=== PATIENT | male | born 1960 | race Caucasian/White ===

== ENCOUNTER 2021-10-04 13:20 | Emergency (ER) | payer OTHER ==
[~2021-10-04] VITALS: Ht 175.3 cm; Wt 92.1 kg
[2021-10-04] MEDS ORDERED: FAMOTIDINE 20 MG TABLET PO ONE (14:30)
[2021-10-04] MEDS ORDERED: MAG HYDROX/AL HYDROX/SIMETH 30 ML, DICYCLOMINE HCL 20 MG, LIDOCAINE VISCOUS 2% 15ML (PO... PO ONE ×3 (14:30)
[2021-10-04] MEDS ORDERED: ONDANSETRON 4 MG ODT TAB PO ONE (14:45)
[2021-10-04 14:51] LABS: BILIRUBIN,URINE NEGATIVE (NEGATIVE); BLOOD, URINE NEGATIVE (NEGATIVE); CLARITY/URINE CLEAR (CLEAR); COLOR,URINE YELLOW (YELLOW); GLUCOSE,URINE 3+ (NEGATIVE); KETONES,URINE 2+ (NEGATIVE); LEUKOCYTE ESTERASE ,URINE NEGATIVE (NEGATIVE); NITRITE, URINE NEGATIVE (NEGATIVE); PH,URINE 5.5 (5.0-8.0); PROTEIN URINE NEGATIVE (NEGATIVE); UROBILINOGEN,URINE 0.2 (0.2-1.0)
[2021-10-04 14:53] LABS: BASOPHILS # (AUTO) 0.1 K/uL (0.0-0.2); EOSINOPHILS % (AUTO) 0.2 % (0.0-4.0); HEMATOCRIT 49.3 % (36-54); HEMOGLOBIN 16.5 g/dL (14.0-18.0); LYMPHOCYTES # (AUTO) 0.7 K/uL (1.0-5.5); LYMPHOCYTES % (AUTO) 6.2 % (20.5-51.5); MEAN CORPUSCULAR HEMOGLOBIN 30 pg (27-31); MEAN CORPUSCULAR HGB CONC 34 % (32-36); MEAN CORPUSCULAR VOLUME 89 fL (79.0-98.0); MONOCYTES # (AUTO) 0.3 K/uL (0.0-1.0); NEUTROPHILS # (AUTO) 10.2 K/uL (1.8-7.7); NEUTROPHILS % (AUTO) 89.6 % (40.0-70.0); PLATELET COUNT (AUTO) 300 K/uL (130-430); RED BLOOD CELL COUNT(AUTO) 5.55 MIL/uL (4.2-6.2); RED CELL DISTRIBUTION WIDTH 13.5 % (9.0-15.0); WHITE BLOOD COUNT (AUTO) 11.4 K/uL (4.8-10.8)
[2021-10-04 15:12] LABS: CALCIUM 9.4 mg/dL (8.4-11.0); CREATININE 1.14 mg/dL (0.55-1.30); POTASSIUM 4.8 mmol/L (3.5-5.1)
[2021-10-04 15:27] LABS: TOTAL BILIRUBIN 0.6 mg/dL (0.0-1.0)
[2021-10-04 15:28] LABS: ALBUMIN 4.1 g/dL (3.4-4.8)
[2021-10-04] MEDS ORDERED: NACL 0.9% 1,000 ML IV ONE ×2 (16:30)
[2021-10-04] MEDS ORDERED: ONDA-8 TL (17:29)
[2021-10-04 18:00] LABS: CALCIUM 8.4 mg/dL (8.4-11.0); CREATININE 1.03 mg/dL (0.55-1.30); POTASSIUM 4.9 mmol/L (3.5-5.1)
[2021-10-04 18:05] LABS: ALBUMIN 3.5 g/dL (3.4-4.8); TOTAL BILIRUBIN 0.9 mg/dL (0.0-1.0)
== END 2021-10-04 18:27 | disposition home or self-care (01) ==
LOC: SED 13:20
DX: K56.600 Partial intestinal obstruction, unspecified as to cause (principal); E11.65 Type 2 diabetes mellitus with hyperglycemia; E86.0 Dehydration; Z88.0 Allergy status to penicillin; Z79.899 Other long term (current) drug therapy
CPT/HCPCS: 36415; 36600; 74021; 74176; 76376; 80053; 81003; 82800; 82803; 82962; 83690; 85025; 96360; 96361; 99285; J2001; J7030; Q0162